=== PATIENT | male | born 1960 | race Caucasian/White ===

== ENCOUNTER 2019-10-09 12:40 | Inpatient (IN) | payer MEDICARE ==
[~2019-10-09] VITALS: Ht 182.9 cm; Wt 89.5 kg
[2019-11-12] VITALS (8 sets, daily range): BP systolic 122–150; BP diastolic 79–93; PULSE 53–79; TEMP 65–98.7
--- NOTE | 2019-11-12 05:49 | NUR ---
Pt arrived to floor with nursing staff. Alert and oriented with vss. Heart and lung sounds normal. Bowel sounds aud all quadrants. Ambulatory. No issues voiding/bm per pt. Pedal pulses present, marked. Surgical site scrubbed and marked. 20g to R hand started. PT denies needs, call light within reach, will continue to monitor
[2019-11-12] MEDS ORDERED: ZYLOPRIM 300MG300 MG PO (05:52)
[2019-11-12] MEDS ORDERED: NORVASC2.5 MG PO (05:52)
[2019-11-12] MEDS ORDERED: ASPIRIN 81M81 MG/TA2 PO (05:53)
[2019-11-12] MEDS ORDERED: LIPITOR 40MG TA40 MG PO (05:53)
[2019-11-12] MEDS ORDERED: ZESTRIL30 MG PO (05:54)
[2019-11-12] MEDS ORDERED: FOLIC ACID 40400 MCG PO (05:54)
[2019-11-12] MEDS ORDERED: PROSCAR 5MG5 MG PO (05:55)
[2019-11-12] MEDS ORDERED: NATURAL IRON65 MG PO (05:55)
--- NOTE | 2019-11-12 10:52 | NUR ---
PT TO ROOM 329 PER BED WITH REPORT FROM [facility] PACU @1113. PT IS A/O X3 DRESSING TO LEFT KNEE CDI WITH BULKY DRESSING OVER INCISION. SCDS AND TEDS INPLACE.
--- NOTE | 2019-11-12 11:41 | NUR ---
YURY met with the patient and the patient's , Faby to complete initial intake. The patient lives in [place] with Faby. The patient has a cane, crutches, and the patient is independent with ADLs. The patient receives medical care at [facility] [place] and receives medications from [facility]. The patient does not have advanced directives in the EMR, DPOA-HC form provided. The patient's plan is to go home with [facility] His first appointment in on Tuesday, 11/18. There are no additional needs at this time.
--- NOTE | 2019-11-12 14:36 | NUR ---
First visit from the audio visual aide. No needs right now.
--- NOTE | 2019-11-12 16:39 | NUR ---
PT VOIDED 500 MLS
--- NOTE | 2019-11-12 22:03 | NUR ---
Patient doing well tonight. alert and oriented. c/o mild pain to L knee, prn carson given. took scheduled medications without issue. patient voiding without issue. walked in hallway approximately 100 yards with standby assist and use of crutches. patient tolerated activity without issue. SCDs in place. denied need for CPAP tonight per respiratory. no further needs at this time. will continue to monitor.
[2019-11-13 04:08] VITALS: BP 151/85; PULSE 96; TEMP 98.3
[2019-11-13 07:10] VITALS: BP 150/84; PULSE 85; TEMP 98.5
--- NOTE | 2019-11-13 08:28 | NUR ---
PT DOING WELL, PAIN CONTROLLED WITH PO PAIN MEDS. DR URENA ROUNDED ON PATIENT DRESSING T0 LEFT KNEE CDI. PLAN ON DISCHARGE LATER TODAY.
--- NOTE | 2019-11-13 10:35 | NUR ---
Initial visit; Patient thanked Shipping Team Leader for looking in on him and offering God's blessings.
[2019-11-13 12:56] VITALS: BP 158/73; PULSE 86; TEMP 98.2
--- NOTE | 2019-11-13 14:45 | NUR ---
DISCHARGE INSTRUCTIONS PROVIDED TO PT AND SPOUSE. PT TAKEN BY WHEEL CHAIR TO FRONT.
--- NOTE | 2019-11-13 15:33 | NUR ---
PT LEFT PER WHEEL CHAIR.
== END 2019-11-13 15:30 | disposition home or self-care (01) | DRG 470 ==
LOC: JCC 11-12 05:09
PROVIDERS: ADMIT Orthopaedic Surgery
PROC: 0SRD0J9 Replacement of Left Knee Joint with Synthetic Substitute, Cemented, Open Approach (ICD-10-PCS; principal; 2019-11-12 07:30)
DX: M17.12 Unilateral primary osteoarthritis, left knee (principal); E78.00 Pure hypercholesterolemia, unspecified; I10 Essential (primary) hypertension; M10.9 Gout, unspecified; G47.33 Obstructive sleep apnea (adult) (pediatric); Z87.442 Personal history of urinary calculi; I25.2 Old myocardial infarction
CPT/HCPCS: A9284; C1776; J0690; J2250; J2405; J2704; J3010; J7120